=== PATIENT | female | born 1985 | race American Indian/Alaskan Native ===

== ENCOUNTER 2022-05-26 11:21 | Emergency (ER) | payer OTHER ==
[2022-05-26] MEDS ORDERED: Sodium Chloride 0.9% 1,000 ML IV STA ×2 (11:45→13:58)
[2022-05-26] MEDS ORDERED: Sodium Chloride 0.9% 10 ML Syringe FLUSH PRN (11:45)
[2022-05-26] MEDS ORDERED: Ondansetron 4 MG/2 ML SDV ONE (11:52)
[2022-05-26] MEDS ORDERED: Ondansetron 4 MG/2 ML SDV IVPUSH ONE (11:52)
[2022-05-26] MEDS ORDERED: Ketorolac 30 MG/ML SDV IVPUSH ONE (12:33)
== END 2022-05-26 14:53 | disposition home or self-care (01) ==
LOC: JD.ED 11:21
DX: F10.129 Alcohol abuse with intoxication, unspecified (principal); F17.210 Nicotine dependence, cigarettes, uncomplicated; Z88.6 Allergy status to analgesic agent; Z79.899 Other long term (current) drug therapy
CPT/HCPCS: 36415; 80053; 80143; 80179; 80307; 84443; 85007; 85027; 93005; 96361; 96374; 96375; 99284; J1885; J2405; J3490; J7030

== ENCOUNTER 2022-05-26 21:20 | Emergency (ER) | payer OTHER ==
[2022-05-26] MEDS ORDERED: Ondansetron 4 MG Tab.DIS PO ONE (22:57)
== END 2022-05-27 00:25 | disposition home or self-care (01) ==
LOC: JD.ED 21:20
DX: F10.120 Alcohol abuse with intoxication, uncomplicated (principal); Z88.6 Allergy status to analgesic agent
CPT/HCPCS: 99283; A9270

== ENCOUNTER 2022-06-01 09:52 | Emergency (ER) | payer OTHER ==
[2022-06-01] MEDS ORDERED: Ondansetron 4 MG Tab.DIS PO ONE (10:22)
[2022-06-01] MEDS ORDERED: Ibuprofen 600 MG Tab PO ONE (10:40)
[2022-06-01 11:41] LABS: CORONAVIRUS COVID-19 NAA POSITIVE (NEGATIVE)
== END 2022-06-01 12:41 | disposition home or self-care (01) ==
LOC: JD.ED 09:52
DX: U07.1 COVID-19 (principal); Z88.6 Allergy status to analgesic agent; Z79.899 Other long term (current) drug therapy
CPT/HCPCS: 0241U; 99283; A9270

== ENCOUNTER 2022-06-17 02:02 | Emergency (ER) | payer OTHER | END 2022-06-17 03:06 | disposition home or self-care (01) | LOC: JD.ED 02:02 | DX: U07.1 COVID-19 (principal); F17.210 Nicotine dependence, cigarettes, uncomplicated; E66.9 Obesity, unspecified; Z68.43 Body mass index [BMI] 50.0-59.9, adult; Z88.8 Allergy status to other drugs, medicaments and biological substances; Z86.16 Personal history of COVID-19 | CPT/HCPCS: 99283 ==

== ENCOUNTER 2022-06-27 05:10 | Emergency (ER) | payer OTHER ==
[2022-06-27] MEDS ORDERED: diphenhydrAMINE 50 MG/ML SDV IVPUSH ONE (05:36)
[2022-06-27] MEDS ORDERED: LORazepam 2 MG/ML SDV IVPUSH ONE (05:36)
[2022-06-27] MEDS ORDERED: Metoclopramide 10 MG/2 ML SDV IVPUSH ONE (05:36)
[2022-06-27] MEDS ORDERED: Pantoprazole 40 MG Vial IVPUSH ONE (05:40)
[2022-06-27] MEDS ORDERED: Dextrose 5%-Lactated Ringers 1,000 ML IV SCH ×2 (05:45→06:45)
== END 2022-06-27 10:09 | disposition home or self-care (01) ==
LOC: JD.ED 05:10
DX: F10.930 Alcohol use, unspecified with withdrawal, uncomplicated (principal); F17.210 Nicotine dependence, cigarettes, uncomplicated; E66.9 Obesity, unspecified; Z68.30 Body mass index [BMI] 30.0-30.9, adult; Z88.6 Allergy status to analgesic agent; Z79.899 Other long term (current) drug therapy; Z86.16 Personal history of COVID-19
CPT/HCPCS: 36415; 80053; 80307; 82009; 83605; 83690; 83735; 84703; 85025; 85610; 85730; 96361; 96374; 96375; 99284; C9113; J1200; J2060; J2765; J7121

== ENCOUNTER 2022-07-01 00:58 | Emergency (ER) | payer OTHER ==
[2022-07-01] MEDS ORDERED: LORazepam 2 MG/ML SDV IVPUSH ONE (01:25)
[2022-07-01] MEDS ORDERED: Sodium Chloride 0.9% 10 ML Syringe FLUSH PRN (01:25)
[2022-07-01] MEDS ORDERED: Ondansetron 4 MG/2 ML SDV IVPUSH ONE (01:25)
[2022-07-01] MEDS ORDERED: Sodium Chloride 0.9% 1,000 ML IV SCH (01:30)
== END 2022-07-01 03:24 | disposition home or self-care (01) ==
LOC: JD.ED 00:58
DX: F10.230 Alcohol dependence with withdrawal, uncomplicated (principal); E66.9 Obesity, unspecified; Z68.42 Body mass index [BMI] 45.0-49.9, adult; Z88.6 Allergy status to analgesic agent
CPT/HCPCS: 36415; 80053; 80307; 83690; 85025; 96361; 96374; 96375; 99284; J2060; J2405; J3490; J7030

== ENCOUNTER 2022-08-24 19:02 | Emergency (ER) | payer OTHER ==
[2022-08-24] MEDS ORDERED: LORazepam 1 MG Tab PO ONE (20:25)
== END 2022-08-24 21:04 | disposition home or self-care (01) ==
LOC: JD.ED 19:02
DX: F10.90 Alcohol use, unspecified, uncomplicated (principal); E66.9 Obesity, unspecified; Z68.43 Body mass index [BMI] 50.0-59.9, adult; Z88.6 Allergy status to analgesic agent
CPT/HCPCS: 99284; A9270

== ENCOUNTER 2022-09-10 03:08 | Emergency (ER) | payer OTHER ==
[2022-09-10] MEDS ORDERED: Lactated Ringers 1,000 ML IV ONE (03:32)
[2022-09-10] MEDS ORDERED: Ondansetron 4 MG/2 ML SDV IVPUSH ONE (03:41)
[2022-09-10] MEDS ORDERED: Lactated Ringers 1,000 ML IV SCH (03:45)
[2022-09-10 04:17] LABS: ESTIMATED GFR 85 mL/min (>60)
[2022-09-10] MEDS ORDERED: Magnesium Oxide 400 MG Tab PO ONE (05:45)
[2022-09-10] MEDS ORDERED: Potassium Chloride 20 MEQ Tab.ER PO ONE (05:45)
== END 2022-09-10 06:05 | disposition home or self-care (01) ==
LOC: JD.ED 03:08
DX: F10.920 Alcohol use, unspecified with intoxication, uncomplicated (principal); E66.9 Obesity, unspecified; Z68.30 Body mass index [BMI] 30.0-30.9, adult; Z88.8 Allergy status to other drugs, medicaments and biological substances; Z86.16 Personal history of COVID-19; Y90.0 Blood alcohol level of less than 20 mg/100 ml
CPT/HCPCS: 36415; 80053; 80307; 85025; 85610; 96361; 96374; 99284; A9270; J2405; J7120

== ENCOUNTER 2022-09-27 07:49 | Emergency (ER) | payer OTHER ==
[2022-09-27] MEDS ORDERED: Ondansetron 4 MG/2 ML SDV IVPUSH ONE (08:36)
[2022-09-27] MEDS ORDERED: LORazepam 2 MG/ML SDV IVPUSH STA (08:36)
[2022-09-27] MEDS ORDERED: Sodium Chloride 0.9% 1,000 ML IV ONE (08:36)
[2022-09-27] MEDS ORDERED: Sodium Chloride 0.9% 10 ML Syringe FLUSH ONE (09:01)
[2022-09-27] MEDS ORDERED: Acetaminophen 325 MG Tab PO ONE (10:17)
== END 2022-09-27 10:50 | disposition home or self-care (01) ==
LOC: JD.ED 07:49
DX: F10.20 Alcohol dependence, uncomplicated (principal); R11.2 Nausea with vomiting, unspecified; K21.9 Gastro-esophageal reflux disease without esophagitis; E66.9 Obesity, unspecified; Z88.8 Allergy status to other drugs, medicaments and biological substances; Z72.0 Tobacco use; Z86.16 Personal history of COVID-19; Z68.43 Body mass index [BMI] 50.0-59.9, adult
CPT/HCPCS: 36415; 80053; 83690; 83735; 85025; 96361; 96374; 96375; 99284; A9270; J2060; J2405; J3490; J7030

== ENCOUNTER 2022-10-08 17:25 | Emergency (ER) | payer OTHER ==
[2022-10-08] MEDS ORDERED: Sodium Chloride 0.9% 1,000 ML IV ONE (18:05)
[2022-10-08] MEDS ORDERED: Ondansetron 4 MG/2 ML SDV IVPUSH ONE (18:05)
[2022-10-08] MEDS ORDERED: LORazepam 2 MG/ML SDV IVPUSH STA (18:05)
== END 2022-10-08 19:58 | disposition home or self-care (01) ==
LOC: JD.ED 17:25
DX: F10.930 Alcohol use, unspecified with withdrawal, uncomplicated (principal); E66.9 Obesity, unspecified; Z68.43 Body mass index [BMI] 50.0-59.9, adult; Z88.8 Allergy status to other drugs, medicaments and biological substances; Z86.16 Personal history of COVID-19; Z72.0 Tobacco use; Y90.0 Blood alcohol level of less than 20 mg/100 ml
CPT/HCPCS: 36415; 80053; 80307; 83735; 85025; 96361; 96374; 96375; 99284; J2060; J2405; J7030

== ENCOUNTER 2022-10-12 09:11 | Emergency (ER) | payer OTHER ==
[2022-10-12] MEDS ORDERED: Ondansetron 4 MG Tab.DIS PO ONE (11:07)
[2022-10-12] MEDS ORDERED: LORazepam 1 MG Tab PO ONE (11:07)
== END 2022-10-12 13:08 | disposition home or self-care (01) ==
LOC: JD.ED 09:11
DX: F41.9 Anxiety disorder, unspecified (principal); F10.129 Alcohol abuse with intoxication, unspecified; F17.210 Nicotine dependence, cigarettes, uncomplicated; E66.9 Obesity, unspecified; Z68.43 Body mass index [BMI] 50.0-59.9, adult; Z86.16 Personal history of COVID-19; Z88.6 Allergy status to analgesic agent
CPT/HCPCS: 36415; 80053; 80307; 85025; 99284; A9270; 99283

== ENCOUNTER 2022-10-19 05:39 | Emergency (ER) | payer OTHER ==
[2022-10-19] MEDS ORDERED: LORazepam 1 MG Tab PO ONE (06:13)
[2022-10-19] MEDS ORDERED: Ondansetron 4 MG Tab.DIS PO ONE (06:13)
== END 2022-10-19 07:00 | disposition home or self-care (01) ==
LOC: JD.ED 05:39
DX: F10.10 Alcohol abuse, uncomplicated (principal); F17.210 Nicotine dependence, cigarettes, uncomplicated; Z88.6 Allergy status to analgesic agent
CPT/HCPCS: 99283; A9270

== ENCOUNTER 2022-10-22 21:55 | Emergency (ER) | payer OTHER ==
[2022-10-22] MEDS ORDERED: LORazepam 2 MG/ML SDV IVPUSH STA (22:42)
[2022-10-22] MEDS ORDERED: Sodium Chloride 0.9% 10 ML Syringe FLUSH PRN (22:42)
[2022-10-22] MEDS ORDERED: Ondansetron 4 MG/2 ML SDV IVPUSH ONE (22:42)
[2022-10-22] MEDS ORDERED: Sodium Chloride 0.9% 1,000 ML IV ONE (22:42)
== END 2022-10-23 00:15 | disposition home or self-care (01) ==
LOC: JD.ED 21:55
DX: F10.20 Alcohol dependence, uncomplicated (principal); F41.9 Anxiety disorder, unspecified; E66.9 Obesity, unspecified; F17.210 Nicotine dependence, cigarettes, uncomplicated; Z88.6 Allergy status to analgesic agent; Z86.16 Personal history of COVID-19; Z68.43 Body mass index [BMI] 50.0-59.9, adult
CPT/HCPCS: 96361; 96374; 96375; 99283; J2060; J2405; J3490; J7030; 99284

== ENCOUNTER 2022-11-25 18:06 | Emergency (ER) | payer OTHER ==
[2022-11-25 18:42] LABS: APPEARANCE,URINE CLOUDY (Clear); BILIRUBIN,URINE NEGATIVE (Negative); COLOR,URINE PINK (Yellow); GLUCOSE,URINE NEGATIVE (Negative); KETONES,URINE NEGATIVE (Negative); LEUKOCYTE ESTERASE,URINE 2+ (Negative); NITRITE,URINE NEGATIVE (Negative); OCCULT BLOOD,URINE 3+ (Negative); PROTEIN,URINE 2+ (Negative); UROBILINOGEN,URINE 0.2 (0.2-1.0)
[2022-11-25 18:46] LABS: MUCUS,URINE FEW /hpf (FEW)
[2022-11-25 19:02] LABS: RBC,URINE TOO NUMEROUS TO CNT /hpf (0-5)
[2022-11-25 19:03] LABS: BACTERIA,URINE MODERATE /hpf (FEW); WBC,URINE 75-100 /hpf (0-5)
== END 2022-11-25 19:29 | disposition home or self-care (01) ==
LOC: JD.ED 18:06
DX: N39.0 Urinary tract infection, site not specified (principal); E66.9 Obesity, unspecified; Z68.30 Body mass index [BMI] 30.0-30.9, adult; Z88.8 Allergy status to other drugs, medicaments and biological substances
CPT/HCPCS: 81001; 87086; 87088; 87186; 99283

== ENCOUNTER 2022-12-08 11:05 | Emergency (ER) | payer OTHER ==
[2022-12-08] MEDS ORDERED: Sodium Chloride 0.9% 10 ML Syringe FLUSH PRN (11:17)
[2022-12-08] MEDS ORDERED: Sodium Chloride 0.9% 1,000 ML IV ONE (11:17)
[2022-12-08] MEDS ORDERED: Metoclopramide 10 MG/2 ML SDV IVPUSH ONE (11:17)
[2022-12-08] MEDS ORDERED: LORazepam 2 MG/ML SDV IVPUSH ONE (11:26)
[2022-12-08 12:08] LABS: BASOPHILS ABSOLUTE AUTO 0.02 K/mm3 (0.01-0.08); BASOPHILS PERCENT AUTO 0.3 % (0.1-1.2); EOSINOPHILS ABSOLUTE AUTO 0.09 K/mm3 (0.04-0.36); EOSINOPHILS PERCENT AUTO 1.1 (0.7-5.8); HEMATOCRIT 42.9 % (34.1-44.9); HEMOGLOBIN 14.1 gm/dl (11.2-15.7); IMMATURE GRAN ABSOLUTE AUTO 0.05 K/mm3 (0.00-0.10); IMMATURE GRAN PERCENT AUTO 0.6 % (<=1.0); LYMPHOCYTES ABSOLUTE AUTO 1.76 K/mm3 (1.18-3.74); LYMPHOCYTES PERCENT AUTO 22.1 % (19.3-51.7); MEAN CORPUSCULAR HEMOGLOBIN 29.1 pg (25.6-32.2); MEAN CORPUSCULAR HGB CONC 32.9 g/dl (32.2-35.5); MEAN CORPUSCULAR VOLUME 88.6 fl (79.4-94.8); MEAN PLATELET VOLUME 8.9 fl (9.4-12.3); MONOCYTES ABSOLUTE AUTO 0.59 K/mm3 (0.24-0.36); MONOCYTES PERCENT AUTO 7.4 % (4.7-12.5); NEUTROPHILS ABSOLUTE AUTO 5.45 K/mm3 (1.56-6.13); NEUTROPHILS PERCENT AUTO 68.5 % (34.0-71.1); PLATELET COUNT,PLT 437 K/mm3 (182-369); RED BLOOD CELL COUNT 4.84 M/mm3 (3.98-5.22); WHITE BLOOD CELL COUNT,WBC 7.96 K/mm3 (3.98-10.04)
[2022-12-08 12:39] LABS: APPEARANCE,URINE CLEAR (Clear); BILIRUBIN,URINE NEGATIVE (Negative); COLOR,URINE YELLOW (Yellow); GLUCOSE,URINE NEGATIVE (Negative); KETONES,URINE NEGATIVE (Negative); LEUKOCYTE ESTERASE,URINE NEGATIVE (Negative); NITRITE,URINE NEGATIVE (Negative); OCCULT BLOOD,URINE NEGATIVE (Negative); PROTEIN,URINE NEGATIVE (Negative); UROBILINOGEN,URINE 0.2 (0.2-1.0)
[2022-12-08 12:51] LABS: BACTERIA,URINE FEW /hpf (FEW); BARBITURATE SCREEN,URINE NEGATIVE (CUTOFF=200); BENZODIAZEPINES SCREEN,URINE NEGATIVE (CUTOFF=150); BUPRENORPHINE SCREEN,URINE NEGATIVE (CUTOFF=10); METHADONE SCREEN, URINE NEGATIVE (CUTOFF=200); METHAMPHETAMINES SCREEN, URINE NEGATIVE (CUTOFF=500); MUCUS,URINE FEW /hpf (FEW); OXYCODONE SCREEN,URINE NEGATIVE (CUT0FF=100); PROPOXYPHENE SCREEN,URINE NEGATIVE (CUTOFF=300); RBC,URINE 0-5 /hpf (0-5); THC SCREEN,URINE 20 NG/ML PRESUMPTIVE POSITIVE (CUTOFF=50); WBC,URINE 0-5 /hpf (0-5)
[2022-12-08 12:54] LABS: AMPHETAMINES SCREEN, URINE NEGATIVE (CUTOFF=500)
[2022-12-08 13:49] LABS: A/G RATIO 0.8 (1-2); ALBUMIN 3.6 g/dl (3.4-5.0); ANION GAP 16.4 (5-15); BILIRUBIN TOTAL 0.1 mg/dL (0.2-1.0); BUN/CREATININE RATIO 8.8 (14-18); CALCIUM 8.7 mg/dL (8.5-10.1); CREATININE 0.8 mg/dL (0.55-1.02); EST CRCL DRUG DOSING (CG) 86.64 mL/min; POTASSIUM,K 4.4 mEq/L (3.5-5.1); PROTEIN TOTAL,TP 8.2 g/dl (6.4-8.2)
== END 2022-12-08 15:00 | disposition home or self-care (01) ==
LOC: JD.ED 11:05
DX: R11.2 Nausea with vomiting, unspecified (principal); E66.9 Obesity, unspecified; Z88.8 Allergy status to other drugs, medicaments and biological substances; Z86.16 Personal history of COVID-19; Z68.43 Body mass index [BMI] 50.0-59.9, adult
CPT/HCPCS: 36415; 80053; 80306; 80307; 81001; 83735; 85025; 96361; 96374; 96375; 99284; J2060; J2765; J3490; J7030

== ENCOUNTER 2023-01-08 17:01 | Emergency (ER) | payer OTHER ==
[2023-01-08] MEDS ORDERED: Ondansetron 4 MG/2 ML SDV IVPUSH ONE (17:27)
[2023-01-08] MEDS ORDERED: Sodium Chloride 0.9% 10 ML Syringe FLUSH PRN (17:27)
[2023-01-08] MEDS ORDERED: Famotidine 20 MG/2 ML SDV IVPUSH ONE (17:28)
[2023-01-08] MEDS ORDERED: Sodium Chloride 0.9% 1,000 ML IV SCH (17:30)
[2023-01-08 17:54] LABS: BASOPHILS ABSOLUTE AUTO 0.03 K/mm3 (0.01-0.08); BASOPHILS PERCENT AUTO 0.4 % (0.1-1.2); EOSINOPHILS ABSOLUTE AUTO 0.08 K/mm3 (0.04-0.36); HEMATOCRIT 41.8 % (34.1-44.9); HEMOGLOBIN 13.6 gm/dl (11.2-15.7); IMMATURE GRAN ABSOLUTE AUTO 0.06 K/mm3 (0.00-0.10); IMMATURE GRAN PERCENT AUTO 0.7 % (<=1.0); LYMPHOCYTES ABSOLUTE AUTO 2.28 K/mm3 (1.18-3.74); LYMPHOCYTES PERCENT AUTO 28.3 % (19.3-51.7); MEAN CORPUSCULAR HEMOGLOBIN 29.1 pg (25.6-32.2); MEAN CORPUSCULAR HGB CONC 32.5 g/dl (32.2-35.5); MEAN CORPUSCULAR VOLUME 89.3 fl (79.4-94.8); MEAN PLATELET VOLUME 8.8 fl (9.4-12.3); MONOCYTES ABSOLUTE AUTO 0.68 K/mm3 (0.24-0.36); MONOCYTES PERCENT AUTO 8.4 % (4.7-12.5); NEUTROPHILS ABSOLUTE AUTO 4.92 K/mm3 (1.56-6.13); NEUTROPHILS PERCENT AUTO 61.2 % (34.0-71.1); PLATELET COUNT,PLT 384 K/mm3 (182-369); RED BLOOD CELL COUNT 4.68 M/mm3 (3.98-5.22); WHITE BLOOD CELL COUNT,WBC 8.05 K/mm3 (3.98-10.04)
[2023-01-08 18:16] LABS: A/G RATIO 0.8 (1-2); ALBUMIN 3.5 g/dl (3.4-5.0); ANION GAP 14.4 (5-15); BILIRUBIN TOTAL 0.2 mg/dL (0.2-1.0); BUN/CREATININE RATIO 11.3 (14-18); CALCIUM 8.5 mg/dL (8.5-10.1); CREATININE 0.8 mg/dL (0.55-1.02); EST CRCL DRUG DOSING (CG) 86.64 mL/min; POTASSIUM,K 3.4 mEq/L (3.5-5.1); PROTEIN TOTAL,TP 7.9 g/dl (6.4-8.2)
[2023-01-08] MEDS ORDERED: LORazepam 2 MG/ML SDV IVPUSH ONE (18:38)
== END 2023-01-08 19:29 | disposition home or self-care (01) ==
LOC: JD.ED 17:01
DX: F10.930 Alcohol use, unspecified with withdrawal, uncomplicated (principal); E66.9 Obesity, unspecified; Z68.43 Body mass index [BMI] 50.0-59.9, adult; Z88.5 Allergy status to narcotic agent
CPT/HCPCS: 36415; 80053; 80307; 83690; 85025; 96361; 96374; 96375; 99284; J2060; J2405; J3490; J7030

== ENCOUNTER 2023-01-21 23:07 | Emergency (ER) | payer OTHER | END 2023-01-21 23:55 | disposition left against medical advice (07) | LOC: JD.ED 23:07 | DX: F10.920 Alcohol use, unspecified with intoxication, uncomplicated (principal); E66.9 Obesity, unspecified; Z86.16 Personal history of COVID-19; Z79.899 Other long term (current) drug therapy; Z88.8 Allergy status to other drugs, medicaments and biological substances; Z68.43 Body mass index [BMI] 50.0-59.9, adult | CPT/HCPCS: 36415; 80307; 99283; 99284 ==

== ENCOUNTER 2023-01-22 05:02 | Emergency (ER) | payer OTHER | END 2023-01-22 05:25 | disposition left against medical advice (07) | LOC: JD.ED 05:02 | DX: F10.920 Alcohol use, unspecified with intoxication, uncomplicated (principal); E66.9 Obesity, unspecified; Z86.16 Personal history of COVID-19; Z88.6 Allergy status to analgesic agent | CPT/HCPCS: 99282; 99283 ==

== ENCOUNTER 2023-01-22 13:24 | Emergency (ER) | payer OTHER ==
[2023-01-22] MEDS ORDERED: Sodium Chloride 0.9% 1,000 ML IV STA (13:40)
[2023-01-22] MEDS ORDERED: Sodium Chloride 0.9% 10 ML Syringe FLUSH PRN (13:40)
[2023-01-22] MEDS ORDERED: Ondansetron 4 MG/2 ML SDV IVPUSH ONE (13:40)
[2023-01-22 13:53] LABS: BASOPHILS ABSOLUTE AUTO 0.04 K/mm3 (0.01-0.08); BASOPHILS PERCENT AUTO 0.4 % (0.1-1.2); EOSINOPHILS ABSOLUTE AUTO 0.01 K/mm3 (0.04-0.36); EOSINOPHILS PERCENT AUTO 0.1 (0.7-5.8); HEMATOCRIT 41.7 % (34.1-44.9); IMMATURE GRAN ABSOLUTE AUTO 0.04 K/mm3 (0.00-0.10); IMMATURE GRAN PERCENT AUTO 0.4 % (<=1.0); LYMPHOCYTES ABSOLUTE AUTO 1.83 K/mm3 (1.18-3.74); LYMPHOCYTES PERCENT AUTO 18.2 % (19.3-51.7); MEAN CORPUSCULAR HEMOGLOBIN 29.3 pg (25.6-32.2); MEAN CORPUSCULAR HGB CONC 33.6 g/dl (32.2-35.5); MEAN CORPUSCULAR VOLUME 87.2 fl (79.4-94.8); MEAN PLATELET VOLUME 8.8 fl (9.4-12.3); MONOCYTES ABSOLUTE AUTO 0.55 K/mm3 (0.24-0.36); MONOCYTES PERCENT AUTO 5.5 % (4.7-12.5); NEUTROPHILS PERCENT AUTO 75.4 % (34.0-71.1); PLATELET COUNT,PLT 426 K/mm3 (182-369); RED BLOOD CELL COUNT 4.78 M/mm3 (3.98-5.22); WHITE BLOOD CELL COUNT,WBC 10.07 K/mm3 (3.98-10.04)
[2023-01-22] MEDS ORDERED: Famotidine 20 MG/2 ML SDV IVPUSH ONE (14:13)
[2023-01-22] MEDS ORDERED: LORazepam 2 MG/ML SDV IVPUSH ONE (14:13)
[2023-01-22 14:15] LABS: A/G RATIO 0.8 (1-2); ALBUMIN 3.7 g/dl (3.4-5.0); ANION GAP 15.4 (5-15); BILIRUBIN TOTAL 0.3 mg/dL (0.2-1.0); BUN/CREATININE RATIO 8.8 (14-18); CALCIUM 8.8 mg/dL (8.5-10.1); CREATININE 0.8 mg/dL (0.55-1.02); EST CRCL DRUG DOSING (CG) 93.63 mL/min; ETHANOL BLOOD MEDICAL 0.03 gm% (0.00); POTASSIUM,K 3.4 mEq/L (3.5-5.1); PROTEIN TOTAL,TP 8.3 g/dl (6.4-8.2)
== END 2023-01-22 15:19 | disposition home or self-care (01) ==
LOC: JD.ED 13:24
DX: F10.10 Alcohol abuse, uncomplicated (principal); E66.9 Obesity, unspecified; Z68.43 Body mass index [BMI] 50.0-59.9, adult; Z86.16 Personal history of COVID-19; Z88.6 Allergy status to analgesic agent
CPT/HCPCS: 36415; 80053; 80307; 85025; 96361; 96374; 96375; 99283; J2060; J2405; J3490; J7030; 99284

== ENCOUNTER 2023-02-04 19:30 | Emergency (ER) | payer OTHER ==
[2023-02-04] MEDS ORDERED: Ketorolac 60 MG/2 ML SDV IM ONE (20:42)
== END 2023-02-04 22:08 | disposition home or self-care (01) ==
LOC: JD.ED 19:30
DX: R07.81 Pleurodynia (principal); Z88.6 Allergy status to analgesic agent; E66.9 Obesity, unspecified; Z68.43 Body mass index [BMI] 50.0-59.9, adult
CPT/HCPCS: 71101; 96372; 99283; J1885; 99282

== ENCOUNTER 2023-03-13 03:38 | Emergency (ER) | payer OTHER | END 2023-03-13 03:55 | disposition left against medical advice (07) | LOC: JD.ED 03:38 | DX: Z53.21 Procedure and treatment not carried out due to patient leaving prior to being seen by health care provider (principal) ==

== ENCOUNTER 2023-03-14 15:35 | Emergency (ER) | payer OTHER | END 2023-03-14 16:45 | disposition home or self-care (01) | LOC: JD.ED 15:35 | DX: U07.1 COVID-19 (principal); Z86.16 Personal history of COVID-19; E66.9 Obesity, unspecified; Z88.5 Allergy status to narcotic agent; Z68.43 Body mass index [BMI] 50.0-59.9, adult | CPT/HCPCS: 99283 ==

== ENCOUNTER 2023-03-21 02:37 | Emergency (ER) | payer OTHER ==
[2023-03-21] MEDS ORDERED: Sulfamethoxazole/Trimethoprim 800-160 MG Tab PO ONE (03:31)
== END 2023-03-21 03:50 | disposition home or self-care (01) ==
LOC: JD.ED 02:37
DX: L03.319 Cellulitis of trunk, unspecified (principal); L08.9 Local infection of the skin and subcutaneous tissue, unspecified; F17.210 Nicotine dependence, cigarettes, uncomplicated; E66.9 Obesity, unspecified; Z79.899 Other long term (current) drug therapy; Z88.8 Allergy status to other drugs, medicaments and biological substances
CPT/HCPCS: 99282; A9270; 99283

== ENCOUNTER 2023-05-01 03:23 | Emergency (ER) | payer OTHER ==
[2023-05-01] MEDS ORDERED: Lactated Ringers 1,000 ML IV ONE (04:09)
[2023-05-01] MEDS ORDERED: Ondansetron 4 MG/2 ML SDV IVPUSH ONE (04:09)
[2023-05-01] MEDS ORDERED: Sucralfate Suspension 1 GM/10 ML Cup PO ONE (04:12)
[2023-05-01 04:28] LABS: BASOPHILS PERCENT AUTO 0.4 % (0.0-1.0); EOSINOPHILS ABSOLUTE AUTO 0.1 K/mm3 (0.0-0.4); EOSINOPHILS PERCENT AUTO 0.9 % (0.0-6.0); HEMATOCRIT 41.2 % (37.0-47.0); HEMOGLOBIN 13.7 gm/dl (12.0-16.0); IMMATURE GRAN ABSOLUTE AUTO 0.09 K/mm3 (0.00-0.05); IMMATURE GRAN PERCENT AUTO 1.3 % (0.0-0.4); LYMPHOCYTES ABSOLUTE AUTO 2.1 K/mm3 (1.0-4.8); LYMPHOCYTES PERCENT AUTO 29.9 % (24.0-44.0); MEAN CORPUSCULAR HEMOGLOBIN 29.8 pg (28.0-32.0); MEAN CORPUSCULAR HGB CONC 33.3 g/dl (32.0-36.0); MEAN CORPUSCULAR VOLUME 89.6 fl (83.0-99.0); MEAN PLATELET VOLUME 8.7 fl (9.4-12.3); MONOCYTES ABSOLUTE AUTO 0.4 K/mm3 (0.0-0.8); MONOCYTES PERCENT AUTO 5.5 % (0.0-8.0); NEUTROPHILS ABSOLUTE AUTO 4.4 K/mm3 (1.8-7.7); PLATELET COUNT,PLT 285 K/mm3 (150-400); WHITE BLOOD CELL COUNT,WBC 7.05 K/mm3 (3.9-11.3)
[2023-05-01 04:47] LABS: INR 0.96; PROTHROMBIN TIME 10.3 SECONDS (9.7-12.0)
[2023-05-01 04:51] LABS: A/G RATIO 0.8 (1-2); ALBUMIN 3.4 g/dl (3.4-5.0); ANION GAP 17.7 (5-15); BILIRUBIN TOTAL 0.2 mg/dL (0.2-1.0); BUN/CREATININE RATIO 8.8 (14-18); CALCIUM 8.3 mg/dL (8.5-10.1); CREATININE 0.8 mg/dL (0.55-1.02); EST CRCL DRUG DOSING (CG) 86.64 mL/min; ETHANOL BLOOD MEDICAL 0.08 gm% (0.00); POTASSIUM,K 3.7 mEq/L (3.5-5.1); PROTEIN TOTAL,TP 7.8 g/dl (6.4-8.2)
[2023-05-01] MEDS ORDERED: Ondansetron 4 MG Tab.DIS PO ONE (05:17)
== END 2023-05-01 05:35 | disposition home or self-care (01) ==
LOC: JD.ED 03:23
DX: F10.920 Alcohol use, unspecified with intoxication, uncomplicated (principal); E66.9 Obesity, unspecified; Z68.43 Body mass index [BMI] 50.0-59.9, adult; Z86.16 Personal history of COVID-19; Z98.890 Other specified postprocedural states; Z88.6 Allergy status to analgesic agent
CPT/HCPCS: 36415; 80053; 80307; 83690; 84484; 85025; 85610; 93005; 96361; 96374; 99285; A9270; J2405; J7120; 93010; 99284

== ENCOUNTER 2023-05-04 08:04 | Emergency (ER) | payer OTHER ==
[2023-05-04] MEDS ORDERED: Sodium Chloride 0.9% 10 ML Syringe FLUSH PRN (08:32)
[2023-05-04] MEDS ORDERED: Sodium Chloride 0.9% 1,000 ML IV ONE (08:32)
[2023-05-04] MEDS ORDERED: Ondansetron 4 MG/2 ML SDV IVPUSH ONE (08:32)
[2023-05-04] MEDS ORDERED: LORazepam 2 MG/ML SDV IVPUSH ONE (08:34)
[2023-05-04 09:05] LABS: BASOPHILS ABSOLUTE AUTO 0.1 K/mm3 (0.0-0.2); BASOPHILS PERCENT AUTO 0.6 % (0.0-1.0); EOSINOPHILS ABSOLUTE AUTO 0.1 K/mm3 (0.0-0.4); EOSINOPHILS PERCENT AUTO 0.6 % (0.0-6.0); HEMATOCRIT 41.7 % (37.0-47.0); HEMOGLOBIN 13.9 gm/dl (12.0-16.0); IMMATURE GRAN ABSOLUTE AUTO 0.07 K/mm3 (0.00-0.05); IMMATURE GRAN PERCENT AUTO 0.8 % (0.0-0.4); LYMPHOCYTES ABSOLUTE AUTO 1.6 K/mm3 (1.0-4.8); LYMPHOCYTES PERCENT AUTO 17.6 % (24.0-44.0); MEAN CORPUSCULAR HEMOGLOBIN 29.5 pg (28.0-32.0); MEAN CORPUSCULAR HGB CONC 33.3 g/dl (32.0-36.0); MEAN CORPUSCULAR VOLUME 88.5 fl (83.0-99.0); MEAN PLATELET VOLUME 8.7 fl (9.4-12.3); MONOCYTES ABSOLUTE AUTO 0.6 K/mm3 (0.0-0.8); MONOCYTES PERCENT AUTO 6.2 % (0.0-8.0); NEUTROPHILS ABSOLUTE AUTO 6.8 K/mm3 (1.8-7.7); NEUTROPHILS PERCENT AUTO 74.2 % (41.0-71.0); PLATELET COUNT,PLT 323 K/mm3 (150-400); RED BLOOD CELL COUNT 4.71 M/mm3 (4.10-5.30); WHITE BLOOD CELL COUNT,WBC 9.08 K/mm3 (3.9-11.3)
[2023-05-04 09:26] LABS: A/G RATIO 0.8 (1-2); ALBUMIN 3.6 g/dl (3.4-5.0); ANION GAP 20.6 (5-15); BILIRUBIN TOTAL 0.3 mg/dL (0.2-1.0); CALCIUM 8.4 mg/dL (8.5-10.1); CREATININE 0.8 mg/dL (0.55-1.02); EST CRCL DRUG DOSING (CG) 86.64 mL/min; ETHANOL BLOOD MEDICAL 0.02 gm% (0.00); MAGNESIUM 1.7 mg/dL (1.8-2.4); POTASSIUM,K 3.6 mEq/L (3.5-5.1); PROTEIN TOTAL,TP 8.3 g/dl (6.4-8.2)
== END 2023-05-04 10:40 | disposition home or self-care (01) ==
LOC: JD.ED 08:04
DX: F10.139 Alcohol abuse with withdrawal, unspecified (principal); K21.9 Gastro-esophageal reflux disease without esophagitis; E66.9 Obesity, unspecified; Y90.1 Blood alcohol level of 20-39 mg/100 ml; Z68.43 Body mass index [BMI] 50.0-59.9, adult; Z79.899 Other long term (current) drug therapy; Z86.16 Personal history of COVID-19
CPT/HCPCS: 36415; 80053; 80307; 83690; 83735; 85025; 96361; 96374; 96375; 99284; J2060; J2405; J7030

== ENCOUNTER 2023-06-04 20:46 | Emergency (ER) | payer OTHER ==
[2023-06-04 21:21] LABS: APPEARANCE,URINE CLEAR (Clear); BILIRUBIN,URINE NEGATIVE (Negative); COLOR,URINE LIGHT YELLOW (Yellow); GLUCOSE,URINE NEGATIVE (Negative); KETONES,URINE NEGATIVE (Negative); LEUKOCYTE ESTERASE,URINE TRACE (Negative); NITRITE,URINE NEGATIVE (Negative); OCCULT BLOOD,URINE TRACE-INTACT (Negative); PROTEIN,URINE NEGATIVE (Negative); UROBILINOGEN,URINE 0.2 (0.2-1.0)
[2023-06-04 21:30] LABS: BACTERIA,URINE FEW /hpf (FEW); MUCUS,URINE FEW /hpf (FEW)
[2023-06-04] MEDS ORDERED: Levofloxacin 250 MG Tab PO ONE (21:47)
== END 2023-06-04 22:04 | disposition home or self-care (01) ==
LOC: JD.ED 20:46
DX: N30.00 Acute cystitis without hematuria (principal); K21.9 Gastro-esophageal reflux disease without esophagitis; E66.9 Obesity, unspecified; Z68.43 Body mass index [BMI] 50.0-59.9, adult; Z88.5 Allergy status to narcotic agent; Z79.899 Other long term (current) drug therapy
CPT/HCPCS: 81001; 87086; 99283; A9270

== ENCOUNTER 2023-08-13 00:18 | Emergency (ER) | payer OTHER ==
[2023-08-13] MEDS: Aluminum Hydroxide/Magnesium Hydroxide/Simethicone Susp 30 ML Cup PO ONE (01:23)
[2023-08-13] MEDS: Famotidine 20 MG Tab PO ONE (01:23)
[2023-08-13] MEDS: Ondansetron 4 MG Tab.DIS PO ONE (01:33)
== END 2023-08-13 02:25 | disposition home or self-care (01) ==
LOC: JD.ED 00:18
DX: F10.129 Alcohol abuse with intoxication, unspecified (principal); K21.9 Gastro-esophageal reflux disease without esophagitis; E66.9 Obesity, unspecified; F17.210 Nicotine dependence, cigarettes, uncomplicated; Z79.899 Other long term (current) drug therapy; Z88.5 Allergy status to narcotic agent; Z86.16 Personal history of COVID-19; Z68.43 Body mass index [BMI] 50.0-59.9, adult; Y90.9 Presence of alcohol in blood, level not specified
CPT/HCPCS: 99284; A9270

== ENCOUNTER 2023-09-12 21:10 | Emergency (ER) | payer OTHER | END 2023-09-12 22:14 | disposition home or self-care (01) | LOC: JD.ED 21:10 | DX: M25.511 Pain in right shoulder (principal); K21.9 Gastro-esophageal reflux disease without esophagitis; E66.9 Obesity, unspecified; F17.210 Nicotine dependence, cigarettes, uncomplicated; Z88.4 Allergy status to anesthetic agent; Z79.899 Other long term (current) drug therapy; Z68.43 Body mass index [BMI] 50.0-59.9, adult; W18.40XA Slipping, tripping and stumbling without falling, unspecified, initial encounter | CPT/HCPCS: 73030-26-RT; 73030-RT; 81025; 99283 ==

== ENCOUNTER 2023-09-23 05:37 | Emergency (ER) | payer OTHER ==
[2023-09-23 06:13] LABS: BASOPHILS PERCENT AUTO 0.5 % (0.0-1.0); EOSINOPHILS ABSOLUTE AUTO 0.1 K/mm3 (0.0-0.4); EOSINOPHILS PERCENT AUTO 0.9 % (0.0-6.0); HEMATOCRIT 40.1 % (37.0-47.0); HEMOGLOBIN 13.3 gm/dl (12.0-16.0); IMMATURE GRAN ABSOLUTE AUTO 0.07 K/mm3 (0.00-0.05); IMMATURE GRAN PERCENT AUTO 0.8 % (0.0-0.4); LYMPHOCYTES ABSOLUTE AUTO 1.9 K/mm3 (1.0-4.8); LYMPHOCYTES PERCENT AUTO 22.3 % (24.0-44.0); MEAN CORPUSCULAR HEMOGLOBIN 28.8 pg (28.0-32.0); MEAN CORPUSCULAR HGB CONC 33.2 g/dl (32.0-36.0); MEAN CORPUSCULAR VOLUME 86.8 fl (83.0-99.0); MEAN PLATELET VOLUME 8.8 fl (9.4-12.3); MONOCYTES ABSOLUTE AUTO 0.4 K/mm3 (0.0-0.8); NEUTROPHILS PERCENT AUTO 70.5 % (41.0-71.0); PLATELET COUNT,PLT 361 K/mm3 (150-400); RED BLOOD CELL COUNT 4.62 M/mm3 (4.10-5.30); WHITE BLOOD CELL COUNT,WBC 8.52 K/mm3 (3.9-11.3)
[2023-09-23] MEDS: Sodium Chloride 0.9% 1,000 ML IV ONE (06:17)
[2023-09-23] MEDS: Pantoprazole 40 MG Vial IVPUSH ONE (06:17)
[2023-09-23 06:34] LABS: INR 0.96; PROTHROMBIN TIME 10.3 SECONDS (9.7-12.0)
[2023-09-23 06:35] LABS: PTT,PARTIAL THROMBOPLSTIN TIME 29.3 SECONDS (21.7-31.4)
[2023-09-23 06:45] LABS: A/G RATIO 0.8 (1-2); ALBUMIN 3.3 g/dl (3.4-5.0); ANION GAP 16.6 (5-15); BILIRUBIN TOTAL 0.2 mg/dL (0.2-1.0); BUN/CREATININE RATIO 8.6 (14-18); CALCIUM 8.4 mg/dL (8.5-10.1); CREATININE 0.7 mg/dL (0.55-1.02); EST CRCL DRUG DOSING (CG) 99.01 mL/min; MAGNESIUM 2.4 mg/dL (1.8-2.4); POTASSIUM,K 3.6 mEq/L (3.5-5.1); PROTEIN TOTAL,TP 7.5 g/dl (6.4-8.2)
[2023-09-23 06:58] LABS: APPEARANCE,URINE CLEAR (Clear); BILIRUBIN,URINE NEGATIVE (Negative); COLOR,URINE LIGHT YELLOW (Yellow); GLUCOSE,URINE NEGATIVE (Negative); KETONES,URINE NEGATIVE (Negative); LEUKOCYTE ESTERASE,URINE NEGATIVE (Negative); NITRITE,URINE NEGATIVE (Negative); OCCULT BLOOD,URINE NEGATIVE (Negative); PH,URINE 6.5 (5.0-8.0); PROTEIN,URINE NEGATIVE (Negative); UROBILINOGEN,URINE 0.2 (0.2-1.0)
[2023-09-23 07:07] LABS: BARBITURATE SCREEN,URINE NEGATIVE (CUTOFF=200); BENZODIAZEPINES SCREEN,URINE NEGATIVE (CUTOFF=150); BUPRENORPHINE SCREEN,URINE NEGATIVE (CUTOFF=10); METHADONE SCREEN, URINE NEGATIVE (CUTOFF=200); METHAMPHETAMINES SCREEN, URINE NEGATIVE (CUTOFF=500); OXYCODONE SCREEN,URINE NEGATIVE (CUT0FF=100); THC SCREEN,URINE 20 NG/ML NEGATIVE (CUTOFF=50)
[2023-09-23 07:10] LABS: AMPHETAMINES SCREEN, URINE NEGATIVE (CUTOFF=500)
[2023-09-23] MEDS: Promethazine 12.5 MG in Sodium Chloride 0.9% 50 ML IV ONE (07:56)
[2023-09-23] MEDS: Ondansetron 4 MG/2 ML SDV IVPUSH ONE (09:24)
== END 2023-09-23 10:26 | disposition home or self-care (01) ==
LOC: JD.ED 05:37
DX: F10.920 Alcohol use, unspecified with intoxication, uncomplicated (principal); F43.10 Post-traumatic stress disorder, unspecified; F17.210 Nicotine dependence, cigarettes, uncomplicated; Z88.1 Allergy status to other antibiotic agents; Z88.8 Allergy status to other drugs, medicaments and biological substances
CPT/HCPCS: 36415; 80053; 80306; 80307; 81003; 83690; 83735; 85025; 85610; 85730; 96361; 96365; 96375; 99284; C9113; J2405; J2550; J3490; J7030